=== PATIENT | female | born 1965 | race Caucasian/White ===

== ENCOUNTER 2018-02-17 10:47 | Outpatient (RCR) | payer SELFPAY | END 2018-05-18 | disposition home or self-care (01) | LOC: CARD 10:47 | PROVIDERS: ATTEND Internal Medicine Cardiovascular Disease | DX: R42 Dizziness and giddiness (principal); R55 Syncope and collapse; R00.2 Palpitations | CPT/HCPCS: 93225; 93226 ==

== ENCOUNTER → 2018-02-17 | Outpatient (CLI) | payer SELFPAY ==
[~2018-02-17] MED LIST: AZIT-21 PO; NAPR550T PO; ORPH100T PO; OXYC-12 PO; PHEN37.582 PO; PRD20T PO; TRM50T PO
== END ==
LOC: CARD 10:44
PROVIDERS: ATTEND Internal Medicine Cardiovascular Disease
DX: R42 Dizziness and giddiness (principal); R55 Syncope and collapse; R00.2 Palpitations
CPT/HCPCS: 93306

== ENCOUNTER → 2018-02-19 | Outpatient (CLI) | payer SELFPAY ==
--- NOTE | 2018-02-19 13:21 | Diagnostic Imaging Report ---
PROCEDURE: US carotid duplex, bilateral. TECHNIQUE: Multiple real-time grayscale images were obtained over the carotid arteries in various projections, bilaterally. Additional duplex Doppler and color Doppler images were also obtained. INDICATION: Dizziness and heart palpitations. FINDINGS: There are no focally elevated velocities in either internal carotid artery. The ICA/CCA ratios are within normal limits, bilaterally. There is antegrade flow in the vertebral arteries, bilaterally. Grayscale images demonstrate minimal carotid plaque, bilaterally. IMPRESSION: Minimal bilateral carotid plaque however spectral analysis shows no evidence of a hemodynamically significant stenosis in either internal carotid artery. Parameters based on the consensus panel Miguel-Scale and Doppler ultrasound criteria published September 2003, Radiology, Volume 229. DOPPLER (peak systolic velocity M/S Right Left CCA 1.18 .96 ICA Proximal .42 .51 ICA Mid .64 .77 ICA Distal .87 .75 RATIO .74 .81 ECA 99 .84 VERT .44 .47 Dictated by: Dictated on workstation # [id number]
--- NOTE | 2018-02-19 13:50 | Diagnostic Imaging Report ---
PROCEDURE: CT head without contrast. TECHNIQUE: Multiple contiguous axial images were obtained through the brain without the use of intravenous contrast. INDICATION: Headaches. COMPARISON: There are no prior studies available for comparison. FINDINGS: There is no mass, shift of the midline, or hemorrhage to suggest an acute intracranial abnormality. The ventricles are not abnormally dilated. There is cortical atrophy present. The degree of atrophy is consistent with the patient's age. The bone windows show no evidence for a fracture or for a destructive lesion. The orbits are symmetrical and within normal limits. The sinuses, where visualized, are clear. IMPRESSION: 1. There is no evidence for an acute intracranial abnormality, and there is no sign of a mass lesion. 2. If clinical concern regarding an underlying abnormality persists, then MRI would be recommended for further study. Dictated by: Dictated on workstation # [id number]
== END ==
LOC: RAD 12:24
PROVIDERS: ATTEND Internal Medicine Cardiovascular Disease
DX: R55 Syncope and collapse (principal)
CPT/HCPCS: 70450; 93880

== ENCOUNTER → 2018-07-23 | Outpatient (CLI) | payer OTHER ==
--- NOTE | 2018-07-23 13:44 | Diagnostic Imaging Report ---
INDICATION: Routine screening. COMPARISON: Comparison is made with prior exam from 09/17/2011. TECHNIQUE: 2D and 3D bilateral screening mammography was performed with computer-aided detection (CAD) system. FINDINGS: Scattered fibroglandular densities are identified bilaterally. Intraparenchymal lymph nodes in the outer right breast appear stable. There are benign calcifications bilaterally. No spiculated mass or malignant appearing microcalcifications are seen. The axillae are unremarkable. IMPRESSION: No mammographic features suspicious for malignancy are identified. ACR BI-RADS Category 2: Benign findings. Result letter will be mailed to the patient. Note: At least 10% of breast cancer is not imaged by mammography. Dictated by: Dictated on workstation # [id number]
== END ==
LOC: RAD 11:08
PROVIDERS: ATTEND Nurse Practitioner Primary Care
DX: Z12.31 Encounter for screening mammogram for malignant neoplasm of breast (principal)
CPT/HCPCS: 77067

== ENCOUNTER → 2021-05-01 | Outpatient (CLI) | payer OTHER ==
[~2021-05-01] MED LIST changes: +ACET-2267 PO; +ASPI325T32 PO; +CHOL100048 PO; +CYAN500T8 PO; +DCS100C PO; +DOCU-143 PO; +IBUP-2473 PO; +MELO15TA39 PO; +MULT-1021 PO; +OXC5T PO; +SENN-20 PO; +TIZA4TAB4 PO; +VITA80006 PO; +ZINC50TA51 PO
--- NOTE | 2021-05-01 12:29 | Diagnostic Imaging Report ---
Indication: Routine screening. Comparison is made with prior mammogram from 07/23/2018. 2-D and 3-D bilateral screening mammography was performed with CAD. Both breasts are primarily involutional. The intraparenchymal lymph nodes upper outer aspects of the right breast appears stable. There are scattered benign calcifications. No mass or malignant appearing microcalcifications are seen. Axillae are unremarkable. IMPRESSION: BI-RADS Category 2 No mammographic features suspicious for malignancy are identified. ACR BI-RADS Category 2: Benign findings. Result letter will be mailed to the patient. Note: At least 10% of breast cancer is not imaged by mammography. Dictated by: Dictated on workstation # [id number]
== END ==
LOC: RAD 09:02
PROVIDERS: ATTEND Nurse Practitioner Family
DX: Z12.31 Encounter for screening mammogram for malignant neoplasm of breast (principal)
CPT/HCPCS: 77063; 77067